=== PATIENT | male | born 1950 | race Caucasian/White ===

== ENCOUNTER 2023-10-30 19:56 | Emergency (ER) | payer MEDICARE ==
[2023-10-30 20:22] VITALS: BP 117/74; PULSE 65; RESP 18; TEMP 98.3; O2SAT 96
[2023-10-30] MEDS ORDERED: Rocephin 1000 MG INJ ONE (20:43)
[2023-10-30] MEDS ORDERED: Augmentin 500-125 Tablet ONE (20:43)
[2023-10-30] MEDS ORDERED: XYLOCAINE 1% HCL 20 ML MDV ONE (20:43)
[2023-10-30] MEDS ORDERED: Adacel Vial IM ONE (20:44)
[2023-10-30] MEDS: Augmentin 500-125 Tablet PO ONE (20:50)
[2023-10-30] MEDS: Adacel Vial IM ONE (20:51)
[2023-10-30] MEDS: Rocephin 1000 MG INJ IM ONE (20:54)
--- NOTE | 2023-10-30 21:02 | ERPHSYRPT ---
- History of Present Illness Time Seen by Provider: 10/30/23 20:25 Source: patient Exam Limitations: no limitations Patient Subjective Stated Complaint: pt states [place] and went to pet a dog and it bit him Triage Nursing Assessment: pt ambulated into the er; pt is axo x4; c/o dog bit; pt states 8/10 pain to left forearm; puncture rosen present to left forearm; minimal bleeding present to forearm; strong left radial pulse; skin PDW; no respiratory distress; vitals wnl Physician History: This is a right-handed 73-year-old white male patient who was in a hay field and went to pet a dog with his left hand and the dog bit him in his left hand and left forearm. Patient's tetanus status is not up-to-date. Patient presented to the emergency department after family member placed salve on the sites. Patient has a history of atrial fibrillation on Xarelto and he also has a history of hyperlipidemia. Timing/Duration: today Quality: painful Severity: mild Location: hands (Left hand dorsal aspect,), extremities (Left forearm dorsal aspect) Possible Causes: other (Dog bite) Associated Symptoms: denies symptoms Allergies/Adverse Reactions: No Known Drug Allergies Allergy (Unverified 10/30/23 20:21) Home Medications: Amiodarone HCl 200 mg PO DAILY 10/30/23 [History] Atorvastatin Calcium [Lipitor] 80 mg PO HS 10/30/23 [History] Rivaroxaban [Xarelto] 20 mg PO DAILY 10/30/23 [History] Sacubitril/Valsartan [Entresto 24 mg-26 mg Tablet] 1 tab PO DAILY 10/30/23 [History] Spironolactone 25 mg [Aldactone 25 MG] 25 mg PO DAILY 10/30/23 [History] Hx Tetanus, Diphtheria Vaccination/Date Given: No Hx Influenza Vaccination/Date Given: No Hx Pneumococcal Vaccination/Date Given: No Immunizations Up to Date: No Travel Risk - International Travel Have you traveled outside of the country in past 3 weeks: No - Emerging Infectious Disease Are you exhibiting symptoms associated with any current EIDs: No - Review of Systems Constitutional: No Symptoms Eyes: No Symptoms Ears, Nose, & Throat: No Symptoms Respiratory: No Symptoms Cardiac: No Symptoms Abdominal/Gastrointestinal: No Symptoms Genitourinary Symptoms: No Symptoms Musculoskeletal: No Symptoms Skin: Other (Dog bite sites to dorsal aspect left hand and dorsal aspect of left distal forearm) Neurological: No Symptoms Psychological: No Symptoms Endocrine: No Symptoms Hematologic/Lymphatic: No Symptoms Immunological/Allergic: No Symptoms All Other Systems: Reviewed and Negative - Past Medical History Pertinent Past Medical History: Yes Neurological History: No Pertinent History ENT History: No Pertinent History Cardiac History: Congestive Heart Failure, High Cholesterol Respiratory History: No Pertinent History Endocrine Medical History: No Pertinent History Musculoskeletal History: No Pertinent History GI Medical History: No Pertinent History History: No Pertinent History Psycho-Social History: No Pertinent History Male Reproductive Disorders: No Pertinent History - Past Surgical History Past Surgical History: No Neuro Surgical History: No Pertinent History Cardiac: No Pertinent History Respiratory: No Pertinent History Gastrointestinal: No Pertinent History Genitourinary: No Pertinent History Musculoskeletal: No Pertinent History Male Surgical History: No Pertinent History - Social History Smoking Status: Never smoker Exposure to second hand smoke: No Drug Use: none - Social Determinants of Health Will the patient participate in the screening: Yes Do you worry about a steady place to live?: No Do you have any problems with any of the following?: No known problems In the past 12 months,have you had to go without utilities?: No Transportation Issues: No Has anyone in your support network made you feel unsafe?: No Have you or anyone in your house had to go without enough: No - Nursing Vital Signs Nursing Vital Signs: Initial Vital Signs Pulse Rate 58 L 10/30/23 20:02 Blood Pressure 117/74 10/30/23 20:02 O2 Sat by Pulse Oximetry 100 10/30/23 20:02 Pain Scale Pain Intensity 8 - Physical Exam General Appearance: no apparent distress, alert Eye Exam: PERRL/EOMI, eyes nml inspection Ears, Nose, Throat Exam: normal ENT inspection, moist mucous membranes Neck Exam: normal inspection, non-tender, supple, full range of motion Respiratory Exam: airway intact, No chest tenderness, No respiratory distress Gastrointestinal/Abdomen Exam: No tenderness Rectal Exam: not done Back Exam: normal inspection, normal range of motion, No CVA tenderness, No vertebral tenderness Extremity Exam: normal range of motion, pelvis stable, swelling (Dorsal aspect left hand and dorsal aspect left forearm), tenderness (Dog bites dorsal aspect left hand and dorsal aspect left forearm) Neurologic Exam: alert, oriented x 3, cooperative, 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, normal mood/affect, nml cerebellar function, nml station & gait, sensation nml Skin Exam: other (Dog bite puncture wounds to dorsal aspect left hand and dorsal aspect left forearm) Lymphatic Exam: No adenopathy SpO2 Interpretation: normal SpO2: 96 O2 Delivery: Room Air - Course Nursing assessment & vital signs reviewed: Yes Ordered Tests: Medication Summary Discontinued Medications Generic Name Dose Route Start Last Admin Trade Name Ethan PRN Reason Stop Dose Admin Amoxicillin/Clavulanate Potassium 500 mg 10/30/23 20:32 10/30/23 20:50 Amox Tr/Potassium Clavulanate 500 Mg Tablet PO 10/30/23 20:33 500 mg STAT ONE Administration Amoxicillin/Clavulanate Potassium Confirm 10/30/23 20:43 Amox Tr/Potassium Clavulanate 500 Mg Tablet Administered 10/30/23 20:44 Dose 500 mg .ROUTE .STK-MED ONE Ceftriaxone Sodium 1,000 mg 10/30/23 20:32 10/30/23 20:54 Ceftriaxone Sodium 1000 Mg Inj Vial IM 10/30/23 20:33 1,000 mg STAT ONE Administration Ceftriaxone Sodium Confirm 10/30/23 20:43 Ceftriaxone Sodium 1000 Mg Inj Vial Administered 10/30/23 20:44 Dose 1,000 mg .ROUTE .STK-MED ONE Diphtheria/Tetanus/Acell Pertussis 0.5 ml 10/30/23 20:32 10/30/23 20:51 Tdap --Diph,Pertuss(Acell),Tet Vac/Pf 0.5 Ml Vial IM 10/30/23 20:33 0.5 ml .ONCE ONE Administration Diphtheria/Tetanus/Acell Pertussis Confirm 10/30/23 20:44 Tdap --Diph,Pertuss(Acell),Tet Vac/Pf 0.5 Ml Vial Administered 10/30/23 20:45 Dose 0.5 ml IM .STK-MED ONE Lidocaine HCl Confirm 10/30/23 20:43 Lidocaine Hcl 1% 20 Ml Mdv 20 Ml Ml Administered 10/30/23 20:44 Dose 3 ml .ROUTE .STK-MED ONE - Progress Progress: pain not gone completely Progress Note: 10/30/23 21:01 My medical decision making and the assignment of low complexity to this patient's medical issue today is based on review of the patient's past medical history, review of the patient's medication list, review of patient drug allergy list, history present illness and physical findings on examination. The workup in this patient does not require laboratory radiographic studies. Counseled pt/family regarding: diagnosis, need for follow-up Medical Desision Making - Diagnostic Testing Diagnostic test were ordered, analyzed, and reviewed by me: No - Risk of complications The pt has a mod risk of morbidity or mortality based on: Need for prescription drug management - Departure Departure Disposition: Home Clinical Impression: Dog bite of left upper extremity Condition: Stable Critical Care Time: No Referrals: DOCTOR,NO FAMILY [Primary Care Provider] - Follow up/PCP as directed Additional Instructions: Use Tylenol for pain control. Do not apply any ointments lotions or creams to the bite sites. Keep them clean twice a day with soap and water. Cover the sites with nonstick bandage. Take your antibiotics as prescribed with food. Take your other medication as prescribed. Call your primary care provider on 11/02/2023, to make arranges for follow-up appointment to be seen in the next 2 to 3 days. Prescriptions: Amoxicillin/Potassium Clav [Augmentin 500-125 Tablet] 1 each PO TID 7 Days #14 tablet
== END 2023-10-30 21:20 | disposition home or self-care (01) ==
LOC: ED 19:56
DX: S50.872A Other superficial bite of left forearm, initial encounter (principal); S60.572A Other superficial bite of hand of left hand, initial encounter; W54.0XXA Bitten by dog, initial encounter; Y92.73 Farm field as the place of occurrence of the external cause; E78.5 Hyperlipidemia, unspecified; Z79.01 Long term (current) use of anticoagulants; Z79.899 Other long term (current) drug therapy; Z23 Encounter for immunization
CPT/HCPCS: 90471; 90715; 96372; 99283; J0696; A9270-GY

== ENCOUNTER 2023-12-05 12:33 | Emergency (ER) | payer MEDICARE ==
[2023-12-05 12:54] VITALS: TEMP 99.6
--- NOTE | 2023-12-05 13:03 | ERPHSYRPT ---
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 pt reports since that time he has had dizziness, headache, low back pain, trouble staying awake, and difficulty ambulating. Triage Nursing Assessment: pt is aox3, pt slow to answer questions but mentation seems appropriate, pupils perrl, afebrile, resps easy and non labored, cap refill < 3 seconds, pt radial pulses strong and equal, pt skin pink warm dry. pt has an abrasion with scabs present to his right frontal head, no other obvious injury or deformity noted. 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 pt reports since that time he has had dizziness, headache, low back pain, trouble staying awake, and difficulty ambulating. Time of Onset/Last Time Seen Normal: since yesterday Timing/Duration: day(s) (Two days ago) Severity: mild Character of Deficits: new weakness, impaired speech Deficits: decrease ability to walk, weak Baseline/Normal Cognition: alert oriented x 3 Current Cognition: alert oriented x 3 Associated Symptoms: confusion, weakness, slurred speech, trouble walking, No loss of consciousness, No vision changes Allergies/Adverse Reactions: No Known Drug Allergies Allergy (Unverified 10/30/23 20:21) Home Medications: Amiodarone HCl 200 mg PO DAILY 10/30/23 [History] Atorvastatin Calcium [Lipitor] 80 mg PO HS 10/30/23 [History] Rivaroxaban [Xarelto] 20 mg PO DAILY 10/30/23 [History] Sacubitril/Valsartan [Entresto 24 mg-26 mg Tablet] 1 tab PO DAILY 10/30/23 [History] Spironolactone 25 mg [Aldactone 25 MG] 25 mg PO DAILY 10/30/23 [History] Hx Tetanus, Diphtheria Vaccination/Date Given: Yes Hx Influenza Vaccination/Date Given: No Hx Pneumococcal Vaccination/Date Given: No Immunizations Up to Date: No Travel Risk - International Travel Have you traveled outside of the country in past 3 weeks: No - Emerging Infectious Disease Are you exhibiting symptoms associated with any current EIDs: No - Review of Systems Constitutional: Weakness, No Fever, No Chills Eyes: No Symptoms Ears, Nose, & Throat: No Symptoms Respiratory: No Cough, No Dyspnea Cardiac: No Chest Pain, No Edema, No Syncope Abdominal/Gastrointestinal: No Abdominal Pain, No Nausea, No Vomiting, No Diarrhea Genitourinary Symptoms: No Dysuria Musculoskeletal: No Back Pain, No Neck Pain Skin: No Rash Neurological: Dizziness, Focal Weakness, Speech Changes, No Sensory Changes Psychological: No Symptoms Endocrine: No Symptoms All Other Systems: Reviewed and Negative - Past Medical History Pertinent Past Medical History: Yes Neurological History: No Pertinent History ENT History: No Pertinent History Cardiac History: Congestive Heart Failure, High Cholesterol Respiratory History: No Pertinent History Endocrine Medical History: No Pertinent History Musculoskeletal History: No Pertinent History GI Medical History: No Pertinent History History: No Pertinent History Psycho-Social History: No Pertinent History Male Reproductive Disorders: No Pertinent History - Past Surgical History Past Surgical History: No Neuro Surgical History: No Pertinent History Cardiac: No Pertinent History Respiratory: No Pertinent History Gastrointestinal: No Pertinent History Genitourinary: No Pertinent History Musculoskeletal: No Pertinent History Male Surgical History: No Pertinent History - Social History Smoking Status: Never smoker Exposure to second hand smoke: No Drug Use: none - Social Determinants of Health Will the patient participate in the screening: Yes Do you worry about a steady place to live?: No Do you have any problems with any of the following?: No known problems In the past 12 months,have you had to go without utilities?: No Transportation Issues: No Has anyone in your support network made you feel unsafe?: No Have you or anyone in your house had to go without enough: No - Nursing Vital Signs Nursing Vital Signs: Initial Vital Signs Temperature 99.6 F 12/05/23 12:37 Pulse Rate 86 12/05/23 12:37 Respiratory Rate 20 12/05/23 12:37 Blood Pressure 91/56 12/05/23 12:37 O2 Sat by Pulse Oximetry 93 L 12/05/23 12:37 Pain Scale Pain Intensity 2 - Vinh Coma Scale Best Eye Response ([place]): (4) open spontaneously Best Verbal Response (Vinh): (5) oriented Best Motor Response ([place]): (6) obeys commands [place] Total: 15 - Physical Exam General Appearance: no apparent distress, alert Eye Exam: bilateral eye: normal inspection, PERRL, EOMI Ears, Nose, Throat Exam: normal ENT inspection, moist mucous membranes Neck Exam: normal inspection, non-tender, supple Respiratory: normal breath sounds, lungs clear, airway intact, No respiratory distress Cardiovascular: regular rate/rhythm, No edema Gastrointestinal: soft, No tenderness, No distention Back Exam: normal inspection Extremity Exam: normal inspection, normal range of motion, No pedal edema Peripheral Pulses: carotid (R): 2+, carotid (L): 2+, femoral (R): 2+, femoral (L): 2+, dorsalis-pedis (R): 2+, dorsalis-pedis (L): 2+ Mental Status: alert, 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 Exam: normal hearing, normal speech, PERRL, tongue midline, No facial paresthesias, No facial weakness Coordination/Gait: normal finger to nose, normal gait Motor/Sensory: no motor deficit DTR: bicep (R): 2+, bicep (L): 2+, tricep (R): 2+, tricep (L): 2+, knee (R): 2+, knee (L): 2+, ankle (R): 2+, ankle (L): 2+ Skin Exam: normal color, warm, dry, No rash SpO2 Interpretation: normal SpO2: 93 O2 Delivery: Room Air - Course Nursing assessment & vital signs reviewed: Yes EKG Interpreted by Me: Sinus Rhythm Rhythm Strip: Normal Sinus Rhythm Ordered Tests: Active Orders 24 hr Category Date Time Status EKG-ER Only STAT Care 12/05/23 13:03 Active HEAD WITHOUT CONTRAST [CT] Stat Exams 12/05/23 12:53 Completed CBC W DIFF Stat Lab 12/05/23 13:15 Completed CMP Stat Lab 12/05/23 13:15 Completed CULTURE,URINE Stat Lab 12/05/23 14:29 Received MAGNESIUM Stat Lab 12/05/23 13:15 Completed TROPONIN Q4H Lab 12/05/23 13:15 Completed TROPONIN Q4H Lab 12/05/23 15:25 Completed TROPONIN Q4H Lab 12/05/23 21:30 Ordered UA W/RFX UR CULTURE Stat Lab 12/05/23 14:29 Completed Medication Summary Discontinued Medications Generic Name Dose Route Start Last Admin Trade Name Ethan PRN Reason Stop Dose Admin Acetaminophen 1,000 mg 12/05/23 14:18 12/05/23 14:19 Acetaminophen 500 Mg Tablet PO 12/05/23 14:19 1,000 mg STAT STA Administration Acetaminophen Confirm 12/05/23 14:19 Acetaminophen 500 Mg Tablet Administered 12/05/23 14:20 Dose 1,000 mg .ROUTE .STK-MED ONE Lab/Rad Data: Laboratory Result Diagrams 12/05/23 13:15 12/05/23 13:15 Laboratory Results 12/05/23 12/05/23 12/05/23 Range/Units 15:25 14:29 13:15 WBC (4.23-9.07) x10^3/uL RBC (4.63-6.08) x10^6/uL Hgb (13.7-17.5) g/dL Hct (40.1-51.0) % MCV (79.0-92.2) fL MCH (25.7-32.2) pg MCHC (32.3-36.5) g/dL RDW (11.6-14.4) % Plt Count (163-337) x10^3/uL MPV (9.4-12.4) fL Gran % (34.0-67.9) % Immature Gran % (Auto) (0.001-0.429) % Nucleat RBC Rel Count (0.00-0.2) % Eos # (Auto) (0.04-0.54) x10^3/uL Immature Gran # (Auto) (0.001-0.031) x10^3u/L Absolute Lymphs (auto) (1.32-3.57) x10^3/uL Absolute Monos (auto) (0.30-0.82) x10^3/uL Absolute Nucleated RBC (0.00-0.012) x10^3u/L Lymphocytes % (21.8-53.1) % Monocytes % (5.3-12.2) % Eosinophils % (0.8-7.0) % Basophils % (0.2-1.2) % Absolute Granulocytes (1.78-5.38) x10^3/uL Basophils # (0.01-0.08) x10^3/uL Sodium (135-145) mmol/L Potassium (3.5-5.1) mmol/L Chloride (98-107) mmol/L Carbon Dioxide (22-30) mmol/L Anion Gap (5-15) MEQ/L BUN (9-20) mg/dL Creatinine (0.66-1.25) mg/dL Estimated GFR ML/MIN Glucose (74-106) mg/dL Calcium (8.4-10.2) mg/dL Magnesium (1.6-2.3) mg/dL Total Bilirubin (0.2-1.3) mg/dL AST (17-59) U/L ALT (0-50) U/L Alkaline Phosphatase (38-126) U/L Troponin I 0.031 0.035 H* (0.000-0.033) ng/mL Serum Total Protein (6.3-8.2) g/dL Albumin (3.5-5.0) g/dL Urine Color Dark Yellow (Yellow) Urine Appearance Cloudy A (Clear) Urine pH 5.5 (4.6-8.0) Ur Specific [place] 1.025 (1.005-1.030) Urine Protein 30 (Negative) Urine Glucose (UA) Negative (Negative) mg/dL Urine Ketones Trace A (Negative) Urine Blood Moderate A (Negative) Urine Nitrite Negative (Negative) Urine Bilirubin Negative (Negative) Urine Urobilinogen 1.0 A (0.2) mg/dL Ur Leukocyte Esterase Negative (Negative) U Hyaline Cast (Auto) None Seen (0-2) /LPF Urine Microscopic RBC 0-2 (0-5) /HPF Urine Microscopic WBC 0-2 (0-5) /HPF Ur Epithelial Cells Rare (None Seen) /HPF Urine Bacteria Few A (None Seen) /HPF Granular Casts 3-5 A (None Seen) /LPF Urine Culture Reflexed YES (NO) 12/05/23 12/05/23 Range/Units 13:15 13:15 WBC 6.3 (4.23-9.07) x10^3/uL RBC 4.12 L (4.63-6.08) x10^6/uL Hgb 12.8 L (13.7-17.5) g/dL Hct 38.2 L (40.1-51.0) % MCV 92.7 H (79.0-92.2) fL MCH 31.1 (25.7-32.2) pg MCHC 33.5 (32.3-36.5) g/dL RDW 11.9 (11.6-14.4) % Plt Count 149 L (163-337) x10^3/uL MPV 10.0 (9.4-12.4) fL Gran % 62.4 (34.0-67.9) % Immature Gran % (Auto) 0.5 H (0.001-0.429) % Nucleat RBC Rel Count 0.0 (0.00-0.2) % Eos # (Auto) 0.18 (0.04-0.54) x10^3/uL Immature Gran # (Auto) 0.03 (0.001-0.031) x10^3u/L Absolute Lymphs (auto) 0.79 L (1.32-3.57) x10^3/uL Absolute Monos (auto) 1.36 H (0.30-0.82) x10^3/uL Absolute Nucleated RBC 0.00 (0.00-0.012) x10^3u/L Lymphocytes % 12.5 L (21.8-53.1) % Monocytes % 21.5 H (5.3-12.2) % Eosinophils % 2.8 (0.8-7.0) % Basophils % 0.3 (0.2-1.2) % Absolute Granulocytes 3.96 (1.78-5.38) x10^3/uL Basophils # 0.02 (0.01-0.08) x10^3/uL Sodium 133 L (135-145) mmol/L Potassium 4.2 (3.5-5.1) mmol/L Chloride 98 (98-107) mmol/L Carbon Dioxide 28 (22-30) mmol/L Anion Gap 11.4 (5-15) MEQ/L BUN 27 H (9-20) mg/dL Creatinine 1.21 (0.66-1.25) mg/dL Estimated GFR 64.0 ML/MIN Glucose 113 H (74-106) mg/dL Calcium 8.3 L (8.4-10.2) mg/dL Magnesium 1.8 (1.6-2.3) mg/dL Total Bilirubin 0.70 (0.2-1.3) mg/dL AST 127 H (17-59) U/L ALT 101 H (0-50) U/L Alkaline Phosphatase 82 (38-126) U/L Troponin I (0.000-0.033) ng/mL Serum Total Protein 6.8 (6.3-8.2) g/dL Albumin 3.7 (3.5-5.0) g/dL Urine Color (Yellow) Urine Appearance (Clear) Urine pH (4.6-8.0) Ur Specific [place] (1.005-1.030) Urine Protein (Negative) Urine Glucose (UA) (Negative) mg/dL Urine Ketones (Negative) Urine Blood (Negative) Urine Nitrite (Negative) Urine Bilirubin (Negative) Urine Urobilinogen (0.2) mg/dL Ur Leukocyte Esterase (Negative) U Hyaline Cast (Auto) (0-2) /LPF Urine Microscopic RBC (0-5) /HPF Urine Microscopic WBC (0-5) /HPF Ur Epithelial Cells (None Seen) /HPF Urine Bacteria (None Seen) /HPF Granular Casts (None Seen) /LPF Urine Culture Reflexed (NO) - Progress Progress: improved Progress Note: 12/05/23 16:01 In ER course patient CT head did show possible acute or subacute ischemic changes in the right frontal row temporal area. Neurology consult was taken and teleneurology consulted teleneurologist discussed case with me. He does not see any significant ischemic changes and after he reviewed the CAT scan it appears that patient has a chronic ischemic changes. Patient neurological exam and this was pretty unremarkable as well as patient was able to walk properly. Patient troponin was 0.035 which decreased to 0.031. Patient remained asymptomatic during the ER course. So patient is being discharged home with the caregiver. I discussed all the findings with caregiver also Discussed with .: Other (Teleneurology service) Counseled pt/family regarding: lab results, diagnosis, need for follow-up, rad results Medical Desision Making - Independent Historian Additional History obtained from: Relative/friend - Diagnostic Testing Diagnostic test were ordered, analyzed, and reviewed by me: Yes Radiological Interpretation: Teleradiologist Report - Risk of complications The pt has a high risk of morbidity or mortality based on: Drug therapy requiring intensive monitoring for toxicity - Departure Departure Disposition: Home Clinical Impression: Chronic cerebral ischemia Head injury Qualifiers: Encounter type: initial encounter Qualified Code(s): S09.90XA - Unspecified injury of head, initial encounter CHF (congestive heart failure), NYHA class IV Qualifiers: Congestive heart failure type: combined Congestive heart failure chronicity: chronic Qualified Code(s): I50.42 - Chronic combined systolic (congestive) and diastolic (congestive) heart failure Condition: Stable Critical Care Time: Yes Critical Care Time(excluding separately billable procedures): Critical 30-74 mins Referrals: DOCTOR,NO FAMILY [Primary Care Provider] - Follow up/PCP as directed Instructions: Heart Failure, Head Injury in Adults (DC) Additional Instructions: Discharge/Care Plan AMRIT XIONG was seen on 12/05/23 in the Emergency Room. The patient was counseled regarding Diagnosis,Lab results, Imaging studies, need for follow up and when to return to the Emergency Room. Prescriptions given: Discharge Note I have spoken with the patient and/or caregivers. I have explained the patient's condition, diagnosis and treatment plan based on the information available to me at this time. I have answered the patient's and/or caregiver's questions and addressed any concerns. The patient and/or caregivers have as good understanding of the patient's diagnosis, condition and treatment plan as can be expected at this point. The vital signs have been stable. The patient's condition is stable and appropriate for discharge from the emergency department. The patient will pursue further outpatient evaluation with the primary care physician or other designated or consulting physician as outlined in the dischar ge instructions. The patient and/or caregivers are agreeable to this plan of care and follow-up instructions have been explained in detail. The patient and/or caregivers have received these instruction. The patient/and or caregivers are aware that any significant change in condition or worsening of symptoms should prompt an immediate return to this or the closest emergency department or call 911. AMRIT XIONG was seen on 12/05/23 n the Emergency Room. At that time you were treated for an emergent condition, during your visit Laboratory, Radiology and/or other procedures may have been ordered. It is very important that you follow-up with your Primary Care Physician NO FAMILY DOCTOR within the next 24- 48 hours to review your Emergency Room visit and the final results of testing that was ordered. Some test results such as Urine Cultures, Blood Cultures, and other cultures if ordered will not be finalized for 24-48 hours. If you do not have a Primary Care Provider please call the medical records department at [phone] ext [phone] to obtain a copy of your results or you may sign into our patient portal to obtain these results by visiting us @ [email or web address] and completing the following steps: 1. Click on the Patient Portal link 2. Click the Patient Self Enrollment Link to complete the enrollment form and entering your 3. Once the enrollment form is completed you will receive an email with a temporary ID and password at the email address you provided. 4. Next choose a user name and password. Your user name must be at least 4 characters long and your password must be at least 4 characters long. 5. Choose a security question from the list and provide your answer to the question. If you already have signed into the Health Portal you may access your Health Care Information 29/09 by the following steps: 1. Login to our website @ [email or web address] 2. Enter your original user name and password. FAQS The [facility] Health Portal is an online tool that contains your Lab Results, Rad iology Reports, Visit History, Discharge Instructions and Health Summary Lab and Radiology Results will not be available for 72 hours on the portal. The Portal is a secure site, passwords are encryted and URLs are re-written so they cannot be copied and pasted. You and authorized family members are the only ones who can access your Portal. Also there is a timeout feature that protects your information if you leave the Portal page open. If you have technical difficulty please use the Contact Us link on the page this will allow you to submit any questions you have regarding the Portal or you may contact the Medical Record Department at [phone] ext [phone].
[2023-12-05 13:20] LABS: Absolute Neutrophil Ct (ANC) 3.96 x10^3/uL (1.78-5.38); BASOPHIL % 0.3 % (0.2-1.2); Basophil (Absolute #) 0.02 x10^3/uL (0.01-0.08); Eosinophil % 2.8 % (0.8-7.0); Eosinophil (Absolute #) 0.18 x10^3/uL (0.04-0.54); Hematocrit 38.2 % (40.1-51.0); Hemoglobin 12.8 g/dL (13.7-17.5); IMMATURE GRAN # 0.03 x10^3u/L (0.001-0.031); IMMATURE GRAN % 0.5 % (0.001-0.429); Lymphocyte (Absolute #) 0.79 x10^3/uL (1.32-3.57); Lymphocytes % 12.5 % (21.8-53.1); Mean Cell Volume 92.7 fL (79.0-92.2); Mean Corpuscular Hemoglobin 31.1 pg (25.7-32.2); Mean Corpuscular Hgb Concent. 33.5 g/dL (32.3-36.5); Monocyte (Absolute #) 1.36 x10^3/uL (0.30-0.82); Monocytes % 21.5 % (5.3-12.2); Neutrophil % 62.4 % (34.0-67.9); Platelet Count 149 x10^3/uL (163-337); Red Blood Count 4.12 x10^6/uL (4.63-6.08); Red Cell Distribution Width 11.9 % (11.6-14.4); White Blood Count 6.3 x10^3/uL (4.23-9.07)
[2023-12-05 13:32] LABS: ALBUMIN 3.7 g/dL (3.5-5.0); ANION GAP 11.4 MEQ/L (5-15); BILIRUBIN,TOTAL 0.7 mg/dL (0.2-1.3); Calcium 8.3 mg/dL (8.4-10.2); Creatinine 1 1.21 mg/dL (0.66-1.25); MAGNESIUM 1.8 mg/dL (1.6-2.3); Potassium 4.2 mmol/L (3.5-5.1); Total Protein 6.8 g/dL (6.3-8.2)
--- NOTE | 2023-12-05 13:35 | XRAY ---
CLINICAL HISTORY: weakness COMPARISON: TECHNIQUE: Axial non-contrast CT scan of the brain was performed from the skull base to the high parietal region. One of the following dose reduction techniques were utilized for this exam: Automated exposure control, adjustment of the mA and/or kV according to patient size, use of iterative reconstruction. CTDI: 53.9 , DLP: 1044 FINDINGS: Brain Parenchyma: Faint hypodensity is seen in the right frontoparietal region [series 2; image #50/71] Normal attenuation of the cerebellum, and brainstem. No evidence of acute hemorrhage, or mass effect. Age-related cerebral atrophic changes as evidenced by prominence of cortical sulcal and gyral pattern and prominent lateral ventricles Periventricular white matter hypodensities in keeping with chronic microvascular ischemic changes Ventricular System: No evidence of hydrocephalus or ventricular enlargement. Subarachnoid Spaces: No evidence of subarachnoid hemorrhage or extra-axial fluid collections. Cerebellum and Brainstem: Normal size and signal. No masses, lesions, or areas of abnormal attenuation. Orbits: Normal appearance of the globes, optic nerves, and extraocular muscles. No evidence of orbital masses or abnormal attenuation. Sinuses: Minimal mucosal thickening seen in both sphenoidal sinuses suggesting mucosal disease Mastoid Air Cells: Loss of pneumatization of mastoid air cells on right side and replaced with soft tissue densities representing chronic otomastoiditis Skull and Meninges: Normal skull morphology. No evidence of meningeal thickening. IMPRESSION: Faint hypodensity seen in the right frontoparietal region concerning for acute to subacute ischemic infarct. MRI with diffusion-weighted imaging is recommended for further evaluation. Age-related cerebral atrophic and chronic microvascular ischemic changes Electronically Signed by: Jackson Lu MD. (12/05/2023 13:30:26 EDT)
[2023-12-05] MEDS ORDERED: TYLENOL EXTRA STRENGTH 500 MG ONE (14:19)
[2023-12-05] MEDS: TYLENOL EXTRA STRENGTH 500 MG PO STA (14:19)
[2023-12-05 14:59] LABS: Appearance Cloudy (Clear); Bilirubin Negative (Negative); Blood Moderate (Negative); Glucose, Urine Negative (Negative); Ketones Trace (Negative); Leukocyte Esterase Negative (Negative); Nitrite Negative (Negative); Ph 5.5 (4.6-8.0); Protein,Urine Dip 30 (Negative); RBC 0-2 /HPF (0-5); Specific Gravity 1.025 (1.005-1.030); WBC 0-2 /HPF (0-5)
[2023-12-05 15:01] LABS: Bacteria Few /HPF (None Seen); Epithelial Cells Rare /HPF (None Seen); Hyaline Casts None Seen /LPF (0-2)
[2023-12-05 15:23] VITALS: RESP 25
[2023-12-05 16:04] VITALS: O2SAT 93
[2023-12-05 16:09] VITALS: BP 100/64; PULSE 59
== END 2023-12-05 16:20 | disposition home or self-care (01) ==
LOC: ED 12:33
DX: I67.82 Cerebral ischemia (principal); S09.90XA Unspecified injury of head, initial encounter; I50.42 Chronic combined systolic (congestive) and diastolic (congestive) heart failure; W22.8XXA Striking against or struck by other objects, initial encounter; Y99.0 Civilian activity done for income or pay; R51.9 Headache, unspecified; R42 Dizziness and giddiness; M54.50 Low back pain, unspecified; R40.0 Somnolence; E78.5 Hyperlipidemia, unspecified; Z79.01 Long term (current) use of anticoagulants; Z79.899 Other long term (current) drug therapy
CPT/HCPCS: 36415; 70450; 80053; 81001; 83735; 84484; 85025; 87086; 93005; 99284; 99291; A9270-GY